=== PATIENT | female | born 1985 | race African-American/Black ===

== ENCOUNTER 2024-01-09 15:17 | Emergency (ER) | payer BC ==
[~2024-01-09] VITALS: Ht 162.6 cm; Wt 85.8 kg
[2024-01-09 16:36] LABS: BASO # 0.1 10^3/uL (0.0-0.2); BASO % 0.4 % (0.0-1.0); EOS # 0.2 10^3/uL (0.0-0.5); HEMATOCRIT 39.6 % (36.0-47.0); HEMOGLOBIN 13.8 g/dl (12.0-15.5); MEAN CORPUSCULAR HEMOGLOBIN 31.5 pg (27.0-33.0); MEAN CORPUSCULAR HGB CONC 34.8 g/dl (32.0-36.5); MEAN CORPUSCULAR VOLUME 90.4 fl (80.0-96.0); MONO # 0.6 10^3/uL (0.0-0.8); MONO % 5.3 % (2.0-8.0); NEUTROPHILS # 8.2 10^3/uL (1.5-8.5); NEUTROPHILS % 73.9 % (36.0-66.0); PLATELET COUNT, AUTOMATED 285 10^3/uL (150-450); RED BLOOD COUNT 4.38 10^6/uL (4.00-5.40); WHITE BLOOD COUNT 11.2 10^3/uL (4.0-10.0)
[2024-01-09] MEDS: ONDANSETRON 4MG 2ML VIAL IV ONE (17:19)
[2024-01-09] MEDS: NS 1,000 ML IV ONE (17:19)
[2024-01-09 18:35] VITALS: BP 112/57; TEMP 98.1; O2SAT 100
== END 2024-01-09 19:01 | disposition home or self-care (01) ==
LOC: M ED 15:17
DX: R42 Dizziness and giddiness (principal); O26.91 Pregnancy related conditions, unspecified, first trimester; Z3A.01 Less than 8 weeks gestation of pregnancy; Z87.891 Personal history of nicotine dependence
CPT/HCPCS: 80047; 81001; 84702; 85025; 87086; 93005; 96374; 99284; J2405

== ENCOUNTER 2024-01-19 13:24 | Emergency (ER) | payer BC ==
[~2024-01-19] VITALS: Ht 162.6 cm; Wt 86.4 kg
[2024-01-19 13:28] VITALS: BP 124/72; TEMP 97.3; O2SAT 100
[2024-01-19 14:15] LABS: BASO # 0.1 10^3/uL (0.0-0.2); BASO % 0.5 % (0.0-1.0); EOS # 0.1 10^3/uL (0.0-0.5); EOS % 0.9 % (0.0-3.0); HEMATOCRIT 37.5 % (36.0-47.0); HEMOGLOBIN 13.1 g/dl (12.0-15.5); LYMPH # 2.3 10^3/uL (1.5-5.0); LYMPH % 19.9 % (24.0-44.0); MEAN CORPUSCULAR HEMOGLOBIN 31.5 pg (27.0-33.0); MEAN CORPUSCULAR HGB CONC 34.9 g/dl (32.0-36.5); MEAN CORPUSCULAR VOLUME 90.1 fl (80.0-96.0); MONO # 0.7 10^3/uL (0.0-0.8); NEUTROPHILS # 8.4 10^3/uL (1.5-8.5); NEUTROPHILS % 72.4 % (36.0-66.0); PLATELET COUNT, AUTOMATED 256 10^3/uL (150-450); RED BLOOD COUNT 4.16 10^6/uL (4.00-5.40); WHITE BLOOD COUNT 11.7 10^3/uL (4.0-10.0)
[2024-01-19 14:47] LABS: BLOOD UREA NITROGEN 10 MG/DL (9-23); CALCIUM LEVEL 9.2 MG/DL (8.5-10.1); CARBON DIOXIDE LEVEL 24 MMOL/L (20-31); CHLORIDE LEVEL 104 MMOL/L (98-107); CREATININE FOR GFR 0.72 MG/DL (0.55-1.30); GLOMERULAR FILTRATION RATE > 60.0 (>60); GLUCOSE, FASTING 69 MG/DL (60-100); POTASSIUM SERUM 3.8 MMOL/L (3.5-5.1); SODIUM LEVEL 136 MMOL/L (136-145)
[2024-01-19 15:03] LABS: HCG, SERUM QUANTITATIVE 47741.5 MIU/ML (<4.2)
== END 2024-01-19 17:21 | disposition left against medical advice (07) ==
LOC: M ED 13:24
DX: Z53.21 Procedure and treatment not carried out due to patient leaving prior to being seen by health care provider (principal)

== ENCOUNTER 2024-01-21 00:37 | Day surgery (SDC) | payer BC ==
[~2024-01-21] VITALS: Ht 162.6 cm; Wt 86.4 kg
[2024-01-21 01:22] LABS: BASO # 0.1 10^3/uL (0.0-0.2); BASO % 0.4 % (0.0-1.0); EOS # 0.2 10^3/uL (0.0-0.5); EOS % 1.7 % (0.0-3.0); HEMOGLOBIN 11.3 g/dl (12.0-15.5); LYMPH % 25.6 % (24.0-44.0); MEAN CORPUSCULAR HEMOGLOBIN 30.6 pg (27.0-33.0); MEAN CORPUSCULAR HGB CONC 34.2 g/dl (32.0-36.5); MEAN CORPUSCULAR VOLUME 89.4 fl (80.0-96.0); MONO # 0.8 10^3/uL (0.0-0.8); MONO % 6.7 % (2.0-8.0); NEUTROPHILS # 7.5 10^3/uL (1.5-8.5); NEUTROPHILS % 65.3 % (36.0-66.0); PLATELET COUNT, AUTOMATED 272 10^3/uL (150-450); RED BLOOD COUNT 3.69 10^6/uL (4.00-5.40); WHITE BLOOD COUNT 11.6 10^3/uL (4.0-10.0)
[2024-01-21 01:32] LABS: APPEARANCE, URINE MANUAL CLOUDY (CLEAR); COLOR, URINE MANUAL RED (YELLOW); GLUCOSE, URINE (UA) MANUAL NEGATIVE (NEGATIVE); KETONE, URINE MANUAL NEGATIVE (NEGATIVE); PROTEIN, URINE MANUAL 2+ mg/dL (NEGATIVE)
[2024-01-21 01:33] LABS: BILIRUBIN, URINE MANUAL NEGATIVE (NEGATIVE); BLOOD URINE MANUAL POSITIVE (NEGATIVE); LEUKOCYTE ESTERASE, URINE MAN TRACE (NEGATIVE); NITRITE, URINE MANUAL NEGATIVE (NEGATIVE); UROBILINOGEN, URINE MANUAL NORMAL (NORMAL)
[2024-01-21 01:35] LABS: RBC, URINE TNTC /hpf (0-3); SQUAMOUS EPITHELIAL CELL URINE SMALL AMOUNT /hpf (SMALL AMT)
[2024-01-21 01:36] LABS: BACTERIA, URINE NONE SEEN; HYALINE CAST, URINE NONE SEEN /lpf (0-1)
[2024-01-21 01:41] LABS: BLOOD UREA NITROGEN 15 MG/DL (9-23); CALCIUM LEVEL 8.4 MG/DL (8.5-10.1); CARBON DIOXIDE LEVEL 23 MMOL/L (20-31); CHLORIDE LEVEL 105 MMOL/L (98-107); CREATININE FOR GFR 0.78 MG/DL (0.55-1.30); GLOMERULAR FILTRATION RATE > 60.0 (>60); GLUCOSE, FASTING 102 MG/DL (60-100); POTASSIUM SERUM 3.5 MMOL/L (3.5-5.1); SODIUM LEVEL 137 MMOL/L (136-145)
[2024-01-21] MEDS: ACETAMINOPHEN TAB 650MG DOSE (2X325MG) PO ONE (02:52)
[2024-01-21] MEDS ORDERED: HOME MED LIST COMPLETE! XX SCH (03:10)
[2024-01-21] MEDS: ONDANSETRON 4MG 2ML VIAL IV ONE (03:27)
[2024-01-21] MEDS: MORPHINE 4 MG/ML 1ML VIAL IV PRN (03:28)
[2024-01-21] MEDS ORDERED: propofoL 200 MG/20 ML VIAL As Ordered ONE (09:20)
[2024-01-21] MEDS ORDERED: ONDANSETRON 4MG 2ML VIAL As Ordered ONE (09:20)
[2024-01-21] MEDS ORDERED: MIDAZOLAM INJ 2MG/2ML VIAL As Ordered ONE (09:20)
[2024-01-21] MEDS ORDERED: fentaNYL 100 MCG/2 ML INJECTION As Ordered ONE (09:20)
[2024-01-21] MEDS ORDERED: LIDOCAINE 2% 100MG/5ML SDV (FOR ANES.) As Ordered ONE (09:20)
[2024-01-21] MEDS ORDERED: ACETAMINOPHEN 1000MG 100ML IV BAG As Ordered ONE (09:58)
[2024-01-21] MEDS: DOXYCYCLINE HYCLATE 100MG/10ML VIAL As Ordered ONE (10:06)
[2024-01-21] MEDS: LIDOCAINE W/EPINEPHRINE 1% 20ML VIAL As Ordered ONE (10:16)
[2024-01-21 10:18] LABS: HEMATOCRIT 30.7 % (36.0-47.0); HEMOGLOBIN 10.8 g/dl (12.0-15.5); MEAN CORPUSCULAR HEMOGLOBIN 31.6 pg (27.0-33.0); MEAN CORPUSCULAR HGB CONC 35.2 g/dl (32.0-36.5); MEAN CORPUSCULAR VOLUME 89.8 fl (80.0-96.0); PLATELET COUNT, AUTOMATED 259 10^3/uL (150-450); RED BLOOD COUNT 3.42 10^6/uL (4.00-5.40); WHITE BLOOD COUNT 10.8 10^3/uL (4.0-10.0)
[2024-01-21] MEDS: METHYLERGONOVINE MALEATE 0.2MG/ML 1ML VIAL As Ordered ONE (10:50)
[2024-01-21] MEDS ORDERED: KETOROLAC 60MG 2ML VIAL As Ordered ONE (10:52)
[2024-01-21] MEDS ORDERED: METOCLOPRAMIDE INJ 10MG/2ML VIAL IV PRN (11:20)
[2024-01-21] MEDS ORDERED: ONDANSETRON 4MG 2ML VIAL IV PRN (11:20)
[2024-01-21 13:05] VITALS: BP 100/58; TEMP 97.7; O2SAT 100
[2024-01-21] MEDS ORDERED: ACETAMINOPHEN 500 MG TAB PO PRN (16:00)
== END 2024-01-21 13:36 | disposition home or self-care (01) ==
LOC: M ED 00:37 → M SDC 08:56
PROVIDERS: ATTEND Obstetrics & Gynecology
DX: O02.1 Missed abortion (principal)
CPT/HCPCS: 36415; 59820; 76801; 80048; 81000; 84702; 85025; 85027; 86850; 86900; 86901; 87086; 88305; 96374; 96375; 99284; J0131; J1100; J1885; J2210; J2250; J2405; J3010

== ENCOUNTER 2024-06-04 17:40 | Emergency (ER) | payer BC ==
[~2024-06-04] VITALS: Ht 162.6 cm; Wt 86.9 kg
[2024-06-04 17:59] VITALS: BP 143/78; TEMP 98.9; O2SAT 97
== END 2024-06-04 19:00 | disposition left against medical advice (07) ==
LOC: M ED 17:40
DX: Z53.21 Procedure and treatment not carried out due to patient leaving prior to being seen by health care provider (principal)

== ENCOUNTER 2025-01-02 23:15 | Emergency (ER) | payer OTHER ==
[~2025-01-02] VITALS: Ht 162.6 cm; Wt 99.6 kg
[2025-01-02 23:19] VITALS: BP 136/65; TEMP 98.6; O2SAT 96
== END 2025-01-03 00:50 | disposition left against medical advice (07) ==
LOC: M ED 23:15
DX: Z53.21 Procedure and treatment not carried out due to patient leaving prior to being seen by health care provider (principal)